=== PATIENT | female | born 2005 | race African-American/Black ===

== ENCOUNTER 2024-09-22 11:48 | Emergency (ER) | payer OTHER, SELFPAY ==
[2024-09-22 11:55] VITALS: BP 126/70; PULSE 80; O2SAT 97
[2024-09-22 12:03] VITALS: BP 121/73; PULSE 82; RESP 14; TEMP 36.5; O2SAT 95; BMI 22.3
--- NOTE | 2024-09-22 13:15 | ED_ITS ---
HPI - Wound/Laceration General Chief Complaint: Wound/Laceration Stated Complaint: FALL R HAND LAC Time Seen by Provider: 09/22/24 12:04 Source: patient Mode of arrival: ambulatory Limitations: no limitations History of Present Illness ED Provider: HPI narrative: This is a 19-year-old girl no medical problems, she is not on blood thinners, she tripped and fell and landed on broken glass sustaining laceration to her tetanus up-to-date, she had minimal abrasion over forehead no nausea no vomiting no headache no vision changes. No neck pain. Denies LOC. Related Data Allergies Allergy/AdvReac Type Severity Reaction Status Date / Time Penicillins Allergy Unknown Verified 09/22/24 12:04 Review of Systems Constitutional: Constitutional: Reports as per HPI Physical Exam Vital Signs: Vital Signs: Last Vital Signs Temp 97.7 F 09/22/24 12:03 Pulse 82 09/22/24 12:03 Resp 14 09/22/24 12:03 BP 121/73 09/22/24 12:03 Pulse Ox 95 09/22/24 12:03 O2 Del Method Room Air 09/22/24 12:03 BMI result Body Mass Index 22.3 Const: Other: * Gen: ?Overall well-appearing patient, no hematoma anterior, superficial abrasion to the forehead * HEENT: PERRLA, EOMI, no blood over the lips * Neck: No back or neck tenderness * CV: RRR, no obvious murmurs appreciated * Resp: ?No wheezing rales rhonchi no stridor moving air well * MSK: FROM, strength 5/5 all extremities, 2 cm laceration over the dorsum of the right wrist, radial ulnar pulses +2 full range of motion of the wrist without deformities or swelling no foreign bodies * Skin: Warm, dry, intact, * Neuro: ?Alert and oriented x3, moving upper and lower extremities symmetrically, no obvious facial asymmetry noted Medical Decision Making Medical Decision Making [facility] Narrative: I spoke to patient's mom over the phone just to discuss that patient does not need head CT, she has a 19-year-old without other risk factors as described my HPI I feel that imaging at without her having any other symptoms would be just need with exposure to radiation,, laceration closed, does not keloid, we will return for wound check and suture removal to emergency department Tests considered The following testing was considered but not selected: CT of the brain, x-ray of the wrist Procedures Laceration right wrist lac: Site: upper extremity Side (If applicable): right Description: linear Depth: simple, single layer Local Anesthetic: lidocaine 1% Amount of anesthesia used (mL): 5 Skin layer closed with: nylon Size (cm): 4-0 Number of sutures: 3 Technique: simple, interrupted Discharge Plan Discharge Clinical Impression: Laceration Contusion of head Qualifiers: Encounter type: initial encounter Contusion of head detail: unspecified part of head Qualified Code(s): S00.93XA - Contusion of unspecified part of head, initial encounter Patient Disposition: Home, Self-Care Additional Instructions: Keep dressing in place for the rest until tomorrow, thereafter can remove the dressing, clean the area with soap and water, do not rub, sutures should be able to come out in approximately 7 days, watch out for any evidence of infection such as redness discharge of pus, you do not need to keep the area covered outside of the dressing that I have applied today, you also have abrasion to her forehead it is minimal you can keep the area clean with soap and water and apply some bacitracin ointment, as discussed with you and your mom I did not feel that further imaging such as CAT scan of the brain is indicated that is due to few factors: 1st of all you are young and do not take any blood tinning medications, this was a trip and fall and not a significant impact injury ( for example such as from a MVC), you did not have any other symptoms to suggest an underlying brain injury. You may have minor headaches or nausea and you may have some evidence of brain contusion, you can take Tylenol for it and rest if something else is evolving that is very concerning to you please come back to emergency department otherwise come back to emergency department in 7 days for suture removal. Some Christianity themes books I have found inspiring/interesting as a physician: Dear and Glorious physician ( about [facility] ), Pa Barnhart( [employer] officer falls in love [facility] Christianity woman and searches for Tremaine ), The Robe ( [employer] soldier wins Tremaine's robe as a gambling prize, and sets on a quest to learn more... ) Print Language: Malay
[2024-09-22 13:44] VITALS: BP 110/69; PULSE 76; RESP 14; TEMP 36.5; O2SAT 100
== END 2024-09-22 13:51 | disposition home or self-care (01) ==
LOC: HO.ED 13:49
PROVIDERS: Emergency Provider Emergency Medicine
DX: S61.411A Laceration without foreign body of right hand, initial encounter (principal); S00.81XA Abrasion of other part of head, initial encounter; M79.641 Pain in right hand; X58.XXXA Exposure to other specified factors, initial encounter; W01.0XXA Fall on same level from slipping, tripping and stumbling without subsequent striking against object, initial encounter; Y93.9 Activity, unspecified; Y92.9 Unspecified place or not applicable; Y99.8 Other external cause status
CPT/HCPCS: 12001; 99282; 99284

== ENCOUNTER 2024-09-28 15:05 | Emergency (ER) | payer OTHER, SELFPAY ==
[2024-09-28 15:24] VITALS: BP 101/49; PULSE 66; RESP 18; TEMP 36.6; O2SAT 100; BMI 21.3
--- OUTSIDE RECORDS SUMMARY | 2024-09-28 15:36 | XMS_ITS | Continuity of Care Document ---
Author Organization [facility] Address [address] [place] [address] Problems Unknown Problems Results Test Value / Unit Interpretation Reference Ran COVID19 SARS-COV-2[46340-1]?Collected: 05/17/2021 07:42 PM?Specimen Received: 05/18/2021 02:49 PM?Source: [facility]) COVID19 (SARS-CoV-2) [17049-7] Negative Negative Source [U6961] [facility] [19847-6] No Healthcare Employee [88747-6] No Symptomatic [12357-7] No Hospitalized [71659-5] Unknown ICU [36661-1] Unknown Congregate Resident [56947-0] No [04450-8] No Comment for COVID19 SARS-COV -2Negative (Not Detected) results do not exclude infectioncaused by SARS-CoV-2 and should not be used as the solebasis for treatment or other patient management decisions.Optimum specimen types and timing for peak viral levelsduring infections caused by SARS-CoV-2 have not beendetermined. Collection of multiple specimens (types and timepoints) from the same patient may be necessary to detect thevirus. Improper specimen collection and handling, sequencevariability underlying assay primers and/or probes, or thepresence of organisms in quantities less than the limit ofdetection of the assay may lead to false negative results.Positive and negative predictive values of testing arehighly dependent on prevalence. False negative results aremore likely when prevalence of disease is high.The expected result is Negative (Not Detected).The SARS-CoV-2 test is intended for the presumptivequalitative detection of nucleic acid from TEMP-ZlG-7fy upper and lower respiratory specimens. Testingmethodology is Nucleic Acid Amplification (NAAT),including RT-PCR, using high-throughput technology.Test results must be correlated with clinical presentationand evaluated in the context of other laboratory andepidemiologic data. Test performance can be affectedbecause the epidemiology and clinical spectrum ofinfection caused by SARS-CoV-2 is not fully known. Forexample, the optimum types of specimens, and when tocollect during the course of infection, may not be known.Fact Sheet for Healthcare Providers:https://[employer]/f7syizq(or: https://www.cdc.gov/coronavirus/2019-ncov/downloads/Jgirpvoop-gxp-Cazupakfgu-Pro vider s-nCoV.pdf)Fact Sheet for Patients:https://[employer]/pvsz24b(or: https://www.cdc.gov/coronavirus/2019-ncov/downloads/Jdmacubgk-yxh-Kgfjjjac-2019- nCoV. pdf)This assay is a Laboratory Developed Test (LDT). Validationdemonstrated the assay has acceptable characteristics todetect COVID-19 from human clinical respiratory specimens.Independent review of this assay by the FDA is not finalat this time.[facility] [address] [place] [address] [id number] Director: Jhonny Mccauley M.D. [facility]# [id number] Allergies, adverse reactions, alerts No known allergies and adverse reactions Medications No administered medications reported Vital Signs No vital signs reported Social History No smoking Hx information available
--- NOTE | 2024-09-28 15:41 | ED.GENADULT ---
HPI - General Adult General Chief complaint: General Medical Stated complaint: stitches removed Time Seen by Provider: 09/28/24 15:38 Source: patient Mode of arrival: ambulatory Limitations: no limitations History of Present Illness ED Provider: Quincy Domingo [facility] narrative: 19 yold female with no pmh presents to the ED for suture removal of right hand. Patient sutures were placed 6 days ago. patient denies any redness, pus discharge, foul odor, fever, chills, redstreaks, numbness, or tingling Related Data Allergies Allergy/AdvReac Type Severity Reaction Status Date / Time Penicillins Allergy Unknown Verified 09/28/24 15:26 Review of Systems Review of Systems: suture removal Yes all other systems are reviewed and are negative [facility] Social History Social History Advance Directives: No Advance Directives Information Provided: No Do you have a plan to hurt others: No Plan Physical Exam ED Vital Signs: Vital Signs - 24 hr 09/28/24 15:24 Temperature 97.8 F Pulse Rate 66 Respiratory Rate 18 Blood Pressure 101/49 L Pulse Oximetry 100 Oxygen Delivery Method Room Air BMI result Body Mass Index 21.3 Const General: cooperative, healthy appearing, comfortable, no acute distress, well developed, alert, awake and Physically active Orientation/consciousness: patient oriented x3 HENMT Head: Yes normal to inspection, Yes No palpable skull fracture present, Yes normocephalic and Yes atraumatic Ears: hearing grossly normal bilaterally, external ears normal, TM's normal bilaterally, TM normal on the right, TM normal on the left, EAC's normal, mastoids normal and no periauricular adenopathy Face and sinus: Yes normal facial exam, Yes sinuses nontender and Yes face symmetric Throat: Yes posterior oropharynx normal, Yes tonsils normal and Yes uvula midline Eyes General: appearance normal, both eyes and all related structures Neck Neck: Yes normal visual inspection, Yes full ROM, Yes no lymphadenopathy, Yes no meningeal signs, Yes trachea midline, Yes supple, No anterior neck swelling and No tender Chest Chest palpation & inspection: normal inspection of the chest and normal palpation of entire chest wall Resp Effort & Inspection: normal respiratory effort and able to speak in complete sentences Auscultation: clear to auscultation bilaterally Cardio Jugular venous distension: no JVD Heart sounds: S1 normal heart sound present and S2 normal heart sound present GI Inspection: Yes normal to inspection Palpation (GI): Soft to palpation, not firm, nontender, no guarding and not rigid General: Yes no CVA tenderness Back/Spine/Pelvis Back: no CVA tenderness and No back tenderness Skin General skin exam: no rashes or lesions noted, elasticity normal and turgor normal Neuro General: patient oriented x3, gait normal, tone normal, moves all extremities, Normal light touch and pain sensation, no meningeal signs, no focal motor deficits and CN's II-XI intact bilaterally Extrem General: Yes normal to inspection, Yes full ROM and Yes capillary refill normal Hand/finger images: 1. 3 sutures present. no erythema, echymosis, tenderness, pus discharge, or foul odor. rest of extremity is normal. motor, neuro, and vascular exam is intact. Psych Appearance: grossly normal, well kempt and not disheveled Medical Decision Making Medical Decision Making [facility] Narrative: 19-year-old female presents to ED for suture removal of right hand. Sutures were states 6 days ago. Patient denies any swelling redness pus discharge from hand. Patient has complete range of motion. Wound is healing. Stitches removed wound cleaned. patient expalined worrisome signs and informed to return to the ED. not susepcting cellulitis, DVT, osteomyeltitis, comparment syndrome, arterial occlusion, or any other life threatening etiologies. Differential Diagnosis Differential Diagnoses: The differential diagnosis associated with the presentation includes (suture removal) Admission/Observation Consideration of admission/observation: Escalation of care including admission/observation considered Independent Historian Clinical information obtained from an independent historian. History obtained from or confirmed by: Other (patient) Discharge Plan Discharge Clinical Impression: Encounter for removal of sutures Patient Disposition: Home, Self-Care Instructions: Stitches Removal (ED) Additional Instructions: Return to the ED for any redness, swelling, bluish black discoloration, pus discharge, foul odor, fever, chills, red streaks, or any other concerning symptoms. Recommend follow up with primary care provider Stand Alone Forms: Work/School Release Interventions: ED Discharge Assessment Last Done: 09/28/24 15:51 Discharge Date/Time: 09/28/24 15:51 Print Language: Canadian
[2024-09-28 15:51] VITALS: BP 101/49; PULSE 66; RESP 18; TEMP 36.6; O2SAT 100
== END 2024-09-28 15:51 | disposition home or self-care (01) ==
PROVIDERS: Emergency Provider Emergency Medicine
DX: Z04.2 Encounter for examination and observation following work accident (principal); Z48.02 Encounter for removal of sutures
CPT/HCPCS: 99282